=== PATIENT | female | born 1985 | race Caucasian/White ===

== ENCOUNTER 2021-05-19 09:11 | Emergency (ER) | payer OTHER, MEDICAID, SELFPAY ==
[2021-05-19 09:15] VITALS: BP 122/58; PULSE 96; RESP 14; TEMP 36.3; O2SAT 99
[2021-05-19] MEDS: FLUORESCEIN 1 MG STRIP EYE-RIGHT (09:27)
[2021-05-19] MEDS: PROPARACAINE 0.5% OPHTH SOL 1 DROPS EYE-BOTH (09:27)
--- NOTE | 2021-05-19 09:48 | ED.EYEPROB ---
HPI - Eye Problem General Chief complaint: Eye Problems Stated complaint: right eye pain, thinks somethings in it Time Seen by Provider: 05/19/21 09:41 Source: patient Mode of arrival: Ambulatory Limitations: no limitations History of Present Illness HPI Narrative: This is a 35-year-old female comes with complaint of right eye pain. Patient was you to packing on Thursday, she thought something had gotten in her eye. Patient noticed this seems like there is a scratch on the side in the white portion. Patient states her vision has been decreased. She wears 24 hour contact lenses and did not remove her lens overnight. Her eye became worse and has slowly continued to worsen. She did take it out today and currently has her contact out on the right side. Patient wears contacts. She has not had any prior eye surgeries. She is unsure of her prescription or her normal visual acuity uncorrected. Patient follows with [facility] in [facility] for her ophthalmology care. She lives on [address]. Patient denies any other major medical issues. Denies any allergies to antibiotics. Related Data Home Medications Medication Instructions Recorded Confirmed vitamin-ferrous fumarate 1 cap PO QDAY #0 03/05/17 65 mg iron-folic acid 1 mg capsule (Mynatal) Previous Rx's Medication Instructions Recorded beclomethasone dipropionate 40 1 - 2 puff INH BID #1 inh 11/12/16 mcg/actuation aerosol inhaler (Qvar) albuterol sulfate 90 mcg/actuation 2 puff INH Q4HP PRN #1 ea 11/27/16 aerosol inhaler (Ventolin HFA) docusate sodium 250 mg capsule 250 mg PO QDAY PRN #30 cap 03/09/17 ferrous gluconate 324 mg (38 mg 324 mg PO QDAY #30 tab 03/09/17 iron) tablet ibuprofen 600 mg tablet 600 mg PO Q6HP PRN #30 tab 03/09/17 oxycodone-acetaminophen 5 mg-325 1 - 2 tab PO Q4HP PRN #40 tab-cap 03/09/17 mg tablet ofloxacin 0.3 % eye drops (Ocuflox) 2 drp EYE-RIGHT Q4H #5 ml 05/19/21 tramadol 50 mg tablet 50 mg PO Q6H PRN #10 tab 05/19/21 Allergies Allergy/AdvReac Type Severity Reaction Status Date / Time pecan nut [PECAN NUT] Allergy Severe Anaphylaxis Verified 05/19/21 09:22 walnut [WALNUT] Allergy Severe Anaphylaxis Verified 05/19/21 09:22 Review of Systems Review of Systems ROS Unobtainable: All systems reviewed & are unremarkable except as noted in HPI and below Patient History Social History Smoking Status: Current every day smoker Smoking Status: Current every day smoker alcohol intake frequency: 0-2 drinks per day Substance Use Type: does not use Exam Narrative Exam Narrative: GEN: well nourished, well appearing female, alert and oriented x 3, patient appears to be in mild distress. HEENT: Atraumatic, pupils are equal round reactive to light, extraocular movements are intact, nares are clear, TMs are clear with no fluid, there is no conjunctival pallor. Throat is clear without any exudates, erythema, tonsillar enlargement or uvular deviation Visual acuity: right [20/200] without correction, left [20/25] with correction (contact in on left). Twenty 40 bilaterally IOP: Right 16 mm Hg, General: no globe trauma Eyelids: normal inspection, eyelids everted for exam on right no foreign body appreciated. Conjunctiva/Sclera: Right conjunctiva and sclera mildly injected. No injection on the left. No drainage. Corneas: normal inspection on left, on the right appears more dull, examined with fluroscein on right with no uptake. EOM: intact, no palsy/entrapment Pupils: PERRL, normal accomadation, pupil normal Anterior Chambers: normal inspection, possible edema difficult to evaluate. Posterior: Fundoscopic performed but difficult to evaluate, patient's red reflex is decreased on the right comparison to the left MSCL: full range of motion, normal gait NEURO:CN 2-12 intact, sensation normal SKIN: No rash or skin changes noted. Initial Vital Signs Initial Vital Signs: Vital Signs Temperature 97.4 F L 05/19/21 09:15 Pulse Rate 96 H 05/19/21 09:15 Respiratory Rate 14 05/19/21 09:15 Blood Pressure 122/58 L 05/19/21 09:15 Pulse Oximetry 99 05/19/21 09:15 Course Orders Ordered: Discontinued Medications Fluorescein Sodium (Fluorescein 1 Mg Strip) 1 mg EYE-RIGHT NOW ONE Stop: 05/19/21 09:21 Last Admin: 05/19/21 09:27 Dose: 1 mg Documented by: LENNOX Proparacaine HCl (Proparacaine 0.5% Ophth Elena) 1 drops EYE-BOTH NOW ONE Stop: 05/19/21 09:21 Last Admin: 05/19/21 09:27 Dose: 1 drops Documented by: LENNOX Consultations Consultation #1: Contacted [facility] ophthalmology in [facility]. Attempted to reach their physician system administration manager but were unsuccessful. Patient was given alternate option here locally as well. She was also encouraged to contact them if she prefers. Patient is aware that she needs follow-up in the next 12-24 hours. Vital Signs Vital signs: Vital Signs - 8 hr 05/19/21 09:15 Temperature 97.4 F L Pulse Rate 96 H Respiratory Rate 14 Blood Pressure 122/58 L Pulse Oximetry 99 MDM - Eye Problem MDM Narrative Medical decision making narrative: Discussed with patient I suspect she may have a little bit of a hyphema. She has decreased vision on the right but unclear if her uncorrected vision is how far this is off from her baseline. She does have her left contact in. She states she could not really see the E on the chart and states she normally should be able to see this at least. Patient does seen ophthalmology group in [place]. Patient I suspect may have a hyphema. My suspicion for retinal detachment is much lower considering her injection and discomfort after her weed whacking. There is no obvious abrasion, ulceration or uptake. Pressures are appropriate. Patient was put on antibiotic drops. Encouraged to see Ophthalmology 1st thing tomorrow. Patient states she would have to see today and may be able to follow-up with them she was encouraged to call today to see if there is someone on-call that might be able to see her sooner. Discharge Plan Departure Patient Disposition: Home Clinical Impression: Hyphema, right eye Instructions: Hyphema Activity Restrictions/Additional Instructions: I suspect that you have a hyphema or collection of blood in the chamber of your eye. We do need to see Ophthalmology shortly for a dedicated eye exam with a closer look at the back of your eye. There are other potential causes of your symptoms that your paper hanger can help evaluate and treat. You can see our paper hanger tomorrow and there referral is included below. You can also contact your own team and see them as well. I encouraged to call them today. I would recommend staying upright and sleeping and in a semiupright or 45 degree position. Do not lay flat overnight. No contacts on the right side/eye until seen by Ophthalmology. This can worsen your condition. Use antibiotic eyedrops as prescribed. Take pain medication as prescribed. You may take Tylenol up to a 1000 mg every 8 hours as needed for pain. If this is an adequate you may use narcotic pain medication as prescribed. This medication can make you sleepy do not drive, perform hazardous activities or make any major decisions while taking it. This medication will make you constipated please take a stool softener once to twice daily until stools are soft and regular. Please return or go to the nearest emergency department if her having rapidly worsening symptoms, increasing pain, loss of vision or worsening vision, purulent drainage, changes in the pupil in size or shape in comparison to the other on the left, severe headaches, vomiting or other new or concerning symptoms. Prescriptions: New ofloxacin [Ocuflox] 0.3 % drops 2 drp EYE-RIGHT Q4H Qty: 5 RF: 0 tramadol 50 mg tablet 50 mg PO Q6H PRN (Reason: pain) Qty: 10 RF: 0 No Action beclomethasone dipropionate [Qvar] 40 MCG/PUFF aerosol 1 - 2 puff INH BID Qty: 1 RF: 2 albuterol sulfate [Ventolin HFA] 90 MCG/PUFF HFA aerosol inhaler 2 puff INH Q4HP PRNQty: 1 RF: 3 vit-iron fum-folic ac [Mynatal] 1 EACH capsule 1 cap PO QDAY Qty: 0 RF: 0 ferrous gluconate 324 MG tablet 324 mg PO QDAY Qty: 30 RF: 0 oxycodone-acetaminophen 5 MG/325 MG tablet 1 - 2 tab PO Q4HP PRNQty: 40 RF: 0 ibuprofen 600 MG tablet 600 mg PO Q6HP PRNQty: 30 RF: 0 docusate sodium 250 MG capsule 250 mg PO QDAY PRNQty: 30 RF: 0 Referrals: Deyvi Williamson MD [Physician] - Albert Grant MD [Primary Care Provider] -
== END 2021-05-19 11:08 | disposition home or self-care (01) ==
PROVIDERS: Emergency Provider Emergency Medicine; Family Provider Family Medicine; PCP Family Medicine
DX: H21.01 Hyphema, right eye (principal)
CPT/HCPCS: 99282

== ENCOUNTER 2024-10-06 13:58 | Emergency (ER) | payer OTHER, SELFPAY ==
[2024-10-06 14:04] VITALS: BP 111/58; PULSE 96; RESP 16; TEMP 36.9; O2SAT 100; BMI 27.4
--- NOTE | 2024-10-06 15:05 | ED_ITS ---
HPI - Skin/Abscess/Foreign Bdy <Mitul Montelongo PA-C - Last Filed: 10/06/24 15:38> General Chief complaint: Skin/Abscess/Foreign Body Stated complaint: eye swollen shut Time Seen by Provider: 10/06/24 14:41 Source: patient Mode of arrival: Ambulatory History of Present Illness HPI narrative: This is a 39-year-old female presents emergency department due to swelling around the right eye. She states that she was removing her makeup yesterday when she noticed some swelling affecting her right eye which has worsened overnight. She denies any fevers, nausea, vomiting. States there was also. The drainage coming from the eye. Denies any pain with extraocular movement. Related Data Home Medications Medication Instructions Recorded Confirmed vitamin-ferrous fumarate 1 cap PO QDAY ##0 03/05/17 65 mg iron-folic acid 1 mg capsule (Mynatal) Previous Rx's Medication Instructions Recorded beclomethasone dipropionate 40 1 - 2 puff INH BID #1 inh 11/12/16 mcg/actuation aerosol inhaler (Qvar) albuterol sulfate 90 mcg/actuation 2 puff INH Q4HP PRN #1 ea 11/27/16 aerosol inhaler (Ventolin HFA) docusate sodium 250 mg capsule 250 mg PO QDAY PRN #30 caps 03/09/17 ferrous gluconate 324 mg (38 mg 324 mg PO QDAY #30 tabs 03/09/17 iron) tablet ibuprofen 600 mg tablet 600 mg PO Q6HP PRN #30 tabs 03/09/17 oxycodone-acetaminophen 5 mg-325 1 - 2 tab (1 - 2 x 5-325 mg) PO 03/09/17 mg tablet Q4HP PRN #40 tab-caps ofloxacin 0.3 % eye drops (Ocuflox) 2 drp EYE-RIGHT Q4H #5 mL 05/19/21 tramadol 50 mg tablet 50 mg PO Q6H PRN pain #10 tabs 05/19/21 amoxicillin 875 mg-potassium 1 tab PO BID #14 tabs 10/06/24 clavulanate 125 mg tablet ofloxacin 0.3 % eye drops 1 drp EYE-RIGHT Q4H 7 days #10 mL 10/06/24 Allergies Allergy/AdvReac Type Severity Reaction Status Date / Time pecan nut [PECAN NUT] Allergy Severe Anaphylaxis Verified 10/06/24 14:07 walnut [WALNUT] Allergy Severe Anaphylaxis Verified 10/06/24 14:07 Review of Systems <Mitul Montelongo PA-C - Last Filed: 10/06/24 15:38> Review of Systems Narrative: GENERAL: Denies chills, fatigue, malaise, fever, sweats. HEENT: Right eyelid swelling Denies sinus pain, ear pain, sore throat, difficulty swallowing, dizziness. RESPIRATORY: Denies dyspnea, cough, wheezing, hemoptysis, sputum. CARDIOVASCULAR: Denies chest pain, palpitations, orthopnea, edema, GASTROINTESTINAL: Denies nausea, vomiting, abdominal pain, diarrhea, constipation, melena. : Denies dysuria, frequency, incontinence, hematuria, urinary retention. MUSCULOSKELETAL: denies weakness, joint pain, or bony pain SKIN: Denies rash, skin lesions, or other NEUROLOGIC: Denies weakness, headache, numbness, change in speech, confusion, seizures, incoordination. PSYCHIATRIC: No concerning psychosocial issues. 12 point review of systems is negative except for those stated above Patient History <Mitul Montelongo PA-C - Last Filed: 10/06/24 15:38> Social History Smoking Status: Current every day smoker Smoking Status: Current every day smoker alcohol intake frequency: 0-2 drinks per day Exam <Mitul Montelongo PA-C - Last Filed: 10/06/24 15:38> Narrative Exam Narrative: GENERAL: Well-developed patient, in mild distress. HEAD: Atraumatic. Normocephalic. EYES: Significant edema around the right eye affecting the upper and lower eyelids. No pain with extraocular movement, no proptosis, no ecchymosis. Some purulent drainage noted in the corners of the eye as well. ENT: Nose without bleeding, purulent drainage. Throat without erythema, tonsillar hypertrophy or exudate. Airway patent. NECK: Trachea midline. Non tender EXTREMITIES: No edema or joint tenderness. NEURO: AOx3. SKIN: No rash or erythema of visible areas Initial Vital Signs Initial Vital Signs: Vital Signs Temperature 98.4 F 10/06/24 14:04 Pulse Rate 96 H 10/06/24 14:04 Respiratory Rate 16 10/06/24 14:04 Blood Pressure 111/58 L 10/06/24 14:04 Pulse Oximetry 100 10/06/24 14:04 Oxygen Delivery Method Room Air 10/06/24 14:04 <DO Jeremiah Ace Last Filed: 10/06/24 15:54> Initial Vital Signs Initial Vital Signs: Vital Signs Temperature 98.4 F 10/06/24 14:04 Pulse Rate 96 H 10/06/24 14:04 Respiratory Rate 16 10/06/24 14:04 Blood Pressure 111/58 L 10/06/24 14:04 Pulse Oximetry 100 10/06/24 14:04 Oxygen Delivery Method Room Air 10/06/24 14:04 Course <Mitul Montelongo PA-C - Last Filed: 10/06/24 15:38> Vital Signs Vital signs: Vital Signs - 8 hr 10/06/24 14:04 Temperature 98.4 F Pulse Rate 96 H Respiratory Rate 16 Blood Pressure 111/58 L Pulse Oximetry 100 Oxygen Delivery Method Room Air <DO Jeremiah Ace Last Filed: 10/06/24 15:54> Vital Signs Vital signs: Vital Signs - 8 hr 10/06/24 14:04 Temperature 98.4 F Pulse Rate 96 H Respiratory Rate 16 Blood Pressure 111/58 L Pulse Oximetry 100 Oxygen Delivery Method Room Air MDM - Skin/Abscess/Foreign Bdy <RADHA Ackerman Last Filed: 10/06/24 15:38> MDM Narrative Medical decision making narrative: ED course: This is a 39-year-old female presenting to the emergency department due to suspected periorbital cellulitis as well as possible bacterial conjunctivitis. There was no proptosis, chemosis, pain with extraocular movement, low concern for orbital cellulitis at this time. We will prescribe oral antibiotics as well as topical antibiotic drops. CC: Eye swelling Complicating co-morbidities: None Data collected from: Previous notes Medical records reviewed: Patient was seen 3 years ago due to hyphema. Wears contacts. Patient encouraged to follow up with Ophthalmology. Differential considered, but not limited to: Orbital cellulitis, periorbital cellulitis, pink eye Exam documented above, pertinent findings include: No proptosis, chemosis, pain with extraocular movement Lab Test results independently reviewed as above. Pertinent findings: None obtained Imaging studies independently reviewed: None obtained Scores Used: None MIPS Elements: None Consultations: None Treatments: None Re-evaluations: None Discussion: Discussed plan with the patient was comfortable with the plan Diagnosis: Periorbital cellulitis, bacterial conjunctivitis Disposition: see below, along with detailed discharge instructions that have been reviewed with patient as well as indications for ED re-evaluation and additional outpatient follow up Discharge Plan Departure Patient Disposition: Home Clinical Impression: Preseptal cellulitis, Acute bacterial conjunctivitis Activity Restrictions/Additional Instructions: Thank you for coming to the [facility] Emergency Department today. Please take the oral antibiotics as prescribed. Please return to the emergency department if you develop any pain with eye movement, ?bulging? of your eye, fevers, or any other concerning signs or symptoms. I hope you feel better soon. Please follow up with your primary care provider within a week if your symptoms continue. If you do not have a primary care provider please contact the [facility] Resource line at [phone]. They will ask some questions about your medical history and help you get set up with a provider in the community. Prescriptions: New amoxicillin-pot clavulanate 875-125 mg tablet 1 tab PO BID Qty: 14 0RF ofloxacin 0.3 % drops 1 drp EYE-RIGHT Q4H 7 Days Qty: 10 0RF Rx Instructions: 1 drop in R eye every four hours for first two days, then 1 drop four times a day for following 5 days. No Action beclomethasone dipropionate [Qvar] 40 MCG/PUFF aerosol 1 - 2 puff INH BID Qty: 1 2RF albuterol sulfate [Ventolin HFA] 90 MCG/PUFF HFA aerosol inhaler 2 puff INH Q4HP PRNQty: 1 3RF vit-iron fum-folic ac [Mynatal] 1 EACH capsule 1 cap PO QDAY Qty: 0 ferrous gluconate 324 MG tablet 324 mg PO QDAY Qty: 30 0RF oxycodone-acetaminophen 5 MG/325 MG tablet 1 - 2 tab PO Q4HP PRNQty: 40 0RF ibuprofen 600 MG tablet 600 mg PO Q6HP PRNQty: 30 0RF docusate sodium 250 MG capsule 250 mg PO QDAY PRNQty: 30 0RF ofloxacin [Ocuflox] 0.3 % drops 2 drp EYE-RIGHT Q4H Qty: 5 0RF tramadol 50 mg tablet 50 mg PO Q6H PRN (Reason: pain) Qty: 10 0RF Referrals: Albert Grant MD [Primary Care Provider] - Stand Alone Forms: Patient Portal/API/Survey ED Sign-out <Robbi Simental DO - Last Filed: 10/06/24 15:54> Cosign ED Attending Cosignature Attestation: Dr Simental Co-Sign Statement: I was available for consultation during this patient's emergency department visit. This chart is signed by myself for administrative purposes only. I did not have direct contact with this patient during this visit. They were seen independently by the APC.
[2024-10-06 15:59] VITALS: BP 110/55; PULSE 90; RESP 17; O2SAT 100
== END 2024-10-06 16:01 | disposition home or self-care (01) ==
PROVIDERS: Emergency Provider Physician Assistant Medical; Family Provider Family Medicine; PCP Family Medicine
DX: L03.213 Periorbital cellulitis (principal); H10.31 Unspecified acute conjunctivitis, right eye
CPT/HCPCS: 99281

== ENCOUNTER → 2025-03-28 13:06 | Outpatient (CLI) | payer OTHER, SELFPAY ==
[2025-03-28 14:55] LABS: Urine N gonorrhoeae NOT DETECTED
[2025-03-28 15:02] LABS: Urine Chlamydia NOT DETECTED
== END ==
PROVIDERS: Family Provider Family Medicine; PCP Family Medicine; Visit Provider Chiropractor
DX: Z11.3 Encounter for screening for infections with a predominantly sexual mode of transmission (principal); N94.89 Other specified conditions associated with female genital organs and menstrual cycle; R30.0 Dysuria
CPT/HCPCS: 87077; 87086; 87210; 87491; 87591